=== PATIENT | female | born 1990 | race Two or more races ===

== ENCOUNTER → 2021-01-03 | Outpatient (CLI) | payer OTHER | LOC: M WHC 15:31 | PROVIDERS: ATTEND Family Medicine | DX: N64.4 Mastodynia (principal) ==

== ENCOUNTER 2021-02-10 21:08 | Emergency (ER) | payer OTHER ==
[~2021-02-10] VITALS: Ht 157.5 cm; Wt 89.3 kg
[2021-02-10 21:10] VITALS: BP 141/70
== END 2021-02-10 23:45 | disposition left against medical advice (07) ==
LOC: M ED 21:08
DX: Z53.29 Procedure and treatment not carried out because of patient's decision for other reasons (principal)